=== PATIENT | female | born 1990 | race Caucasian/White ===

== ENCOUNTER 2016-07-06 01:12 | Emergency (ER) | payer OTHER ==
[~2016-07-06] VITALS: Ht 167.6 cm; Wt 135.0 kg
[~2016-07-06 01:12] MED LIST: ALBU8.5H5 INH; HYDR-906 PO; LORA-441 PO
[2016-07-06 01:44] VITALS: Ht 167.6 cm; Wt 135.0 kg
[2016-07-06] MEDS ORDERED: ONDANSETRON (ODT) 4 MG TAB ODT STA (05:27)
[2016-07-06] MEDS ORDERED: ONDA4TAB8 PO (06:07)
[2016-07-06] MEDS ORDERED: LOPE2CAP PO (06:07)
[2016-07-06] MEDS ORDERED: ELEC100080 PO (06:08)
[2016-07-06 06:09] VITALS: BP 118/72; PULSE 96; RESP 16; TEMP 97.9
--- NOTE | 2016-07-06 06:18 | ERD ---
ER Documentation Chief Complaint Date/Time DATE: 07/06/16 TIME: 06:14 Chief Complaint n/v with diarrhea for past 2 days my grandfather has the same symtpoms HPI This is a 26 year old female who presents to the emergency department today complaining of nausea vomiting diarrhea for the past 2 days. Patient states she is having a hard time keeping liquids down. States she has been drinking dk tiffanie and Gatorade. States that she is hungry but she is afraid to eat. States that her grandfather that she wasn't have the same symptoms. Denies any fevers or chills or abdominal pain. ROS All systems reviewed and are negative except as per history of present illness. Medications Home Meds Active Scripts Electrolyte,Oral (Pedialyte) 1,000 Ml Solution, 100 ML PO Q6 Y for DIARRHEA, # 1000 ML Prov:CATHERINE CASANOVA PA-C 07/06/16 Loperamide Hcl* (Imodium*) 2 Mg Capsule, 2 MG PO .AFTER EA LOOSE BM Y for DIARRHEA, #10 TAB Prov:CATHERINE CASANOVA PA-C 07/06/16 Ondansetron Hcl* (Zofran*) 4 Mg Tablet, 4 MG PO Q6H for NAUSEA AND/OR VOMITING, #30 TAB Prov:CATHERINE CASANOVA PA-C 07/06/16 Hydrocodone Bit-Acetaminophen ([place]) 5-325 Mg Tablet, 1 TAB PO DAILY Y for PAIN for 7 Days, #7 TAB 0 Refills Prov:JENI CLINTON PA-C 01/06/16 Albuterol Sulfate* (Albuterol Sulfate* HFA) 8.5 Gm Hfa.aer.ad, 1-2 PUFF INH Q4 Y for SHORTNESS OF BREATH, #1 EA Prov:CHO,ROBINSON 12/15/14 Lorazepam* (Ativan*) 0.5 Mg Tablet, 0.5 MG PO Q8, #10 Prov:CHO,ROBINSON 12/15/14 Allergies Allergies: Coded Allergies: aspirin (Verified Allergy, Unknown, 01/06/16) diphenhydramine (Verified Allergy, Unknown, mouth swelling, 12/15/14) PMhx/Soc Hx Respiratory Disorders: Yes (asthma) Hx Psychiatric Problems: Yes (anxiety depression) Hx Alcohol Use: Yes (occasionally) Hx Substance Use: No Hx Tobacco Use: Yes Smoking Status: Never smoker Physical Exam Vitals Vital Signs Date Time Temp Pulse Resp B/P Pulse Ox O2 Delivery O2 Flow Rate FiO2 07/06/16 06:09 97.9 96 16 118/72 97 Room Air 07/06/16 01:44 97.5 108 18 136/82 95 Physical Exam Const: Obese, no acute distress Head: Atraumatic Eyes: Normal Conjunctiva ENT: Normal External Ears, Nose and Mouth. Neck: Full range of motion..~ No meningismus. Resp: Clear to auscultation bilaterally Cardio: Regular rate and rhythm, no murmurs Abd: Soft, non tender, non distended. Normal bowel sounds. No right lower quadrant pain. No left lower quadrant pain. Skin: No petechiae or rashes Back: No midline or flank tenderness Ext: No cyanosis, or edema Neur: Awake and alert Psych: Normal Mood and Affect Results 24 hrs Current Medications Medications (Trade) Dose Ordered Sig/Juan Miguel Route PRN Reason Start Time Stop Time Status Last Admin Dose Admin Ondansetron HCl (Zofran Odt) 4 mg ONCE STAT ODT 07/06/16 05:27 07/06/16 05:28 DC 07/06/16 06:06 Ibuprofen (Motrin) 800 mg ONCE ONCE PO 07/06/16 06:30 07/06/16 06:31 Procedures/MDM This is a 6 old female who presents the emergency department today complaining of nausea vomiting and diarrhea for the past couple of days. Patient's grandfather also has a same symptoms. Patient had no abdominal pain on physical exam. She is afebrile and otherwise well-appearing. I do not feel the patient requires laboratory work or imaging at this time. Patient's symptoms at this time consistent with nausea vomiting diarrhea possibly viral in nature. I have low suspicion for any acute surgical abdomen. She has no right lower quadrant pain. She has no left lower quadrant pain. Patient given Zofran here in the emergency department. Patient was playing of some back pain and was therefore given Motrin prior to discharge. Patient was asking to leave and stated that she wanted to go home. She was instructed to return for any worsening of symptoms or abdominal pain. She was also instructed to stop smoking. At this time the patient is stable for discharge and outpatient management. Patient should follow up with their PCP in the next 1-2 days. They may return to the emergency department sooner for any persistent or worsening of symptoms. Patient understood and agreed with the plan. Departure Diagnosis: Primary Impression: Nausea vomiting and diarrhea Condition: Fair Patient Instructions: Self-Care for Vomiting and Diarrhea Additional Instructions: Call your primary care doctor TOMORROW for an appointment during the next 1-2 days.See the doctor sooner or return here if your condition worsens before your appointment time. Zofran for nausea or vomiting Imodium for diarrhea Stay well-hydrated CATHERINE CASANOVA PA-C Jul 06, 2016 06:18
[2016-07-06] MEDS ORDERED: IBUPROFEN 800 MG TAB PO ONE (06:30)
== END 2016-07-06 06:17 | disposition home or self-care (01) ==
LOC: EEVIPCON 01:12 → FTE 01:12
DX: R11.2 Nausea with vomiting, unspecified (principal); R19.7 Diarrhea, unspecified; J45.909 Unspecified asthma, uncomplicated
CPT/HCPCS: 99283

== ENCOUNTER 2016-12-31 10:56 | Emergency (ER) | payer OTHER ==
[~2016-12-31] VITALS: Ht 167.6 cm; Wt 151.5 kg
[~2016-12-31 10:56] MED LIST changes: +ELEC100080 PO; +LOPE2CAP PO; +ONDA4TAB8 PO
[2016-12-31 11:01] VITALS: Ht 167.6 cm; Wt 151.5 kg
[2016-12-31] MEDS ORDERED: ACETAMINOPHEN 325 MG TAB PO ONE ×2 (11:30)
--- NOTE | 2016-12-31 12:21 | RADRPT ---
PROCEDURE: Right upper quadrant ultrasound CLINICAL INDICATION: Abdominal pain TECHNIQUE: Multiple real-time images were acquired of the patient's abdomen and right retroperiton eum utilizing a high resolution transducer. COMPARISON: None FINDINGS: The liver is normal in echogenicity and measures 21.1 cm. No focal hepatic masses are seen. The ga llbladder is physiologically distended. There is no evidence of gallstones, gallbladder wall thicke pablo, or pericholecystic fluid. The intra and extrahepatic bile ducts are normal in caliber. The c ommon bile duct measures 4.8 mm. Midline images demonstrate the pancreas head to be normal in echogenicity without obvious inflammato ry change. The body and tail are suboptimally seen Survey views of the right kidney demonstrate no evidence of hydronephrosis or renal calculi. The ri ght kidney measures 11.7 cm. IMPRESSION: 1. No evidence of cholelithiasis or acute cholecystitis. 2. No biliary duct dilatation. 3. Mild hepatomegaly RPTAT: HH .Silvio Mcfarland MD, Date Time Electronically viewed and signed by .Silvio Mcfarland MD, on 12/31/2016 12:21 .W/
[2016-12-31 12:45] LABS: BASOPHILS % 0.3 % (0.0-2.0); EOSINOPHILS # 0.1 10^3/ul (0.0-0.5); EOSINOPHILS % 0.7 % (0.0-7.0); HEMATOCRIT 34.9 % (37.0-47.0); HEMOGLOBIN 11.6 g/dl (12.0-16.0); LYMPHOCYTES # 3.1 10^3/ul (0.8-2.9); LYMPHOCYTES % 26.7 % (15.0-51.0); MEAN CORPUSCULAR HEMOGLOBIN 25.3 pg (29.0-33.0); MEAN CORPUSCULAR HGB CONC 33.2 g/dl (32.0-37.0); MEAN PLATELET VOLUME 9.1 fl (7.4-10.4); MONOCYTE # 0.6 10^3/ul (0.3-0.9); NEUTROPHIL # 7.8 10^3/ul (1.6-7.5); PLATELET COUNT 331 10^3/UL (140-415); RED BLOOD COUNT 4.59 10^6/ul (4.20-5.40); RED CELL DISTRIBUTION WIDTH 14.5 % (11.5-14.5); WHITE BLOOD COUNT 11.6 10^3/ul (4.8-10.8)
[2016-12-31 12:49] LABS: ADD SCAN DIFF NO
[2016-12-31 12:53] LABS: ADD UMIC NO; UR ASCORBIC ACID NEGATIVE (NEGATIVE); UR BILIRUBIN (Dip) NEGATIVE (NEGATIVE); UR BLOOD (Dip) NEGATIVE (NEGATIVE); UR CLARITY SLIGHTLY CLOUDY (CLEAR); UR COLOR YELLOW (YELLOW); UR GLUCOSE (Dip) NEGATIVE (NEGATIVE); UR KETONES (Dip) NEGATIVE (NEGATIVE); UR LEUKOCYTE ESTERASE (Dip) NEGATIVE Leu/ul (NEGATIVE); UR NITRITE (Dip) NEGATIVE (NEGATIVE); UR RBC 0 /HPF (0-5); UR SPECIFIC GRAVITY (Dip) 1.016 (1.003-1.030); UR SQUAMOUS EPITHELIAL CELL FEW /HPF (FEW); UR TOTAL PROTEIN (Dip) NEGATIVE (NEGATIVE); UR UROBILINOGEN (Dip) NEGATIVE (NEGATIVE)
--- NOTE | 2016-12-31 12:59 | RADRPT ---
PROCEDURE: US OB. CLINICAL INDICATION: Pelvic pain. TECHNIQUE: Multiple sonographic images of the pelvis were obtained. Transabdominal imaging only w as performed. COMPARISON: None. FINDINGS: The cervix is closed with a length of 4.0 cm. Cardiac activity is present with 151 beats per minute. Measurements were made in order to determine age. The results are as follows: BPD = 15 weeks 0 days HC = 15 weeks 2 days AC = 17 weeks 3 days FL = 15 weeks 3 days The placenta is anterior, with no evidence of previa. IMPRESSION: Single, live intrauterine with estimated age of 15 weeks, 6 days on the basis of thi s examination. No acute or significant abnormality. RPTAT: EE .Cedric Gonzalez MD, MD Date Time Electronically viewed and signed by .Cedric Gonzalez MD, on 12/31/2016 13:04 .C/
[2016-12-31 13:02] LABS: ALBUMIN 4.4 g/dl (3.3-4.9); ALBUMIN/GLOBULIN RATIO 1.25; CALCIUM 9.8 mg/dl (8.4-10.2); CREATININE 0.46 mg/dl (0.44-1.00); POTASSIUM 3.7 mmol/L (3.5-5.1); TOTAL PROTEIN 7.9 g/dl (6.1-8.1)
[2016-12-31] MEDS ORDERED: ACET500C5 PO (13:29)
--- NOTE | 2016-12-31 13:34 | ERD ---
ER Documentation Chief Complaint Date/Time DATE: 12/31/16 TIME: 13:31 Chief Complaint ABDOMINAL CRAMPS SINCE YESTERDAY, 15 WEEKS PREG NO VAG BLEED HPI This 26-year-old female presents with 1 day history of intermittent abdominal pain. She is approximately 15 weeks by dates. She is unable to specifically localize pain but describes as being in the right upper quadrant, left upper quadrant and occasionally in the mid abdomen. She has a right lower quadrant abdominal pain currently. She denies any fevers. She has nausea from the beginning of but no vomiting. Denies diarrhea, urinary complaints. She does receive care. She denies any vaginal bleeding or vaginal discharge ROS All systems reviewed and are negative except as per history of present illness. Medications Home Meds Active Scripts Acetaminophen* (Tylophen*) 500 Mg Capsule, 1 CAP PO Q6H Y for PAIN AND OR ELEVATED TEMP, #20 CAP Prov:ROYCE THOMAS MD 12/31/16 Electrolyte,Oral (Pedialyte) 1,000 Ml Solution, 100 ML PO Q6 Y for DIARRHEA, # 1000 ML Prov:CATHERINE CASANOVA PA-C 07/06/16 Loperamide Hcl* (Imodium*) 2 Mg Capsule, 2 MG PO .AFTER EA LOOSE BM Y for DIARRHEA, #10 TAB Prov:CATHERINE CASANOVA PA-C 07/06/16 Ondansetron Hcl* (Zofran*) 4 Mg Tablet, 4 MG PO Q6H for NAUSEA AND/OR VOMITING, #30 TAB Prov:CATHERINE CASANOVA PA-C 07/06/16 Hydrocodone Bit-Acetaminophen ([place]) 5-325 Mg Tablet, 1 TAB PO DAILY Y for PAIN for 7 Days, #7 TAB 0 Refills Prov:JENI CLINTON PA-C 01/06/16 Albuterol Sulfate* (Albuterol Sulfate* HFA) 8.5 Gm Hfa.aer.ad, 1-2 PUFF INH Q4 Y for SHORTNESS OF BREATH, #1 EA Prov:CHO,ROBINSON 12/15/14 Lorazepam* (Ativan*) 0.5 Mg Tablet, 0.5 MG PO Q8, #10 Prov:CHO,ROBINSON 12/15/14 Allergies Allergies: Coded Allergies: aspirin (Verified Allergy, Unknown, 12/31/16) diphenhydramine (Verified Allergy, Unknown, mouth swelling, 12/31/16) PMhx/Soc Medical and Surgical Hx: pt denies Surgical Hx Hx Respiratory Disorders: Yes (asthma) Hx Psychiatric Problems: Yes (anxiety depression) Hx Alcohol Use: Yes (occasionally) Hx Substance Use: No Hx Tobacco Use: Yes Smoking Status: Current every day smoker Physical Exam Vitals Vital Signs Date Time Temp Pulse Resp B/P Pulse Ox O2 Delivery O2 Flow Rate FiO2 12/31/16 11:01 97.3 102 18 136/84 96 Physical Exam Const: [] Alert, morbidly obese Head: Atraumatic Eyes: Normal Conjunctiva ENT: Normal External Ears, Nose and Mouth. Neck: Full range of motion..~ No meningismus. Resp: Clear to auscultation bilaterally Cardio: Regular rate and rhythm, no murmurs Abd: Soft, minimal tenderness in the right left upper quadrant. No rebound. No tenderness at McBurney's point., non distended. Normal bowel sounds Skin: No petechiae or rashes Back: No midline or flank tenderness Ext: No cyanosis, or edema Neur: Awake and alert Psych: Normal Mood and Affect Result Diagram: 12/31/16 1223 12/31/16 1223 Results 24 hrs Laboratory Tests Test 12/31/16 12:23 White Blood Count 11.610^3/ul Red Blood Count 4.5910^6/ul Hemoglobin 11.6g/dl Hematocrit 34.9% Mean Corpuscular Volume 76.0fl Mean Corpuscular Hemoglobin 25.3pg Mean Corpuscular Hemoglobin Concent 33.2g/dl Red Cell Distribution Width 14.5% Platelet Count 79993^3/UL Mean Platelet Volume 9.1fl Neutrophils % 67.0% Lymphocytes % 26.7% Monocytes % 5.0% Eosinophils % 0.7% Basophils % 0.3% Nucleated Red Blood Cells % 0.0/100WBC Neutrophils # 7.810^3/ul Lymphocytes # 3.110^3/ul Monocytes # 0.610^3/ul Eosinophils # 0.110^3/ul Basophils # 0.010^3/ul Nucleated Red Blood Cells # 0.010^3/ul Urine Color YELLOW Urine Clarity SLIGHTLY CLOUDY Urine pH 7.0 Urine Specific Alpha 1.016 Urine Ketones NEGATIVEmg/dL Urine Nitrite NEGATIVEmg/dL Urine Bilirubin NEGATIVEmg/dL Urine Urobilinogen NEGATIVEmg/dL Urine Leukocyte Esterase NEGATIVELeu/ul Urine Microscopic RBC 0/HPF Urine Microscopic WBC 2/HPF Urine Squamous Epithelial Cells FEW/HPF Urine Hemoglobin NEGATIVEmg/dL Urine Glucose NEGATIVEmg/dL Urine Total Protein NEGATIVEmg/dl Sodium Level 139mmol/L Potassium Level 3.7mmol/L Chloride Level 101mmol/L Carbon Dioxide Level 21mmol/L Anion Gap 21 Blood Urea Nitrogen 6mg/dl Creatinine 0.46mg/dl Glucose Level 115mg/dl Calcium Level 9.8mg/dl Total Bilirubin 0.0mg/dl Direct Bilirubin 0.00mg/dl Indirect Bilirubin 0.0mg/dl Aspartate Amino Transf (AST/SGOT) 19IU/L Alanine Aminotransferase (ALT/SGPT) 32IU/L Alkaline Phosphatase 69IU/L Total Protein 7.9g/dl Albumin 4.4g/dl Globulin 3.50g/dl Albumin/Globulin Ratio 1.25 Lipase 76U/L Current Medications Medications (Trade) Dose Ordered Sig/Juan Miguel Route PRN Reason Start Time Stop Time Status Last Admin Dose Admin Acetaminophen (Tylenol Tab) 650 mg ONCE ONCE PO 12/31/16 11:30 12/31/16 11:31 DC 12/31/16 12:12 Acetaminophen (Tylenol Tab) 650 mg ONCE ONCE PO 12/31/16 11:30 12/31/16 12:12 DC Procedures/MDM Urine is negative for leukocytes, nitrites, glucose. Pelvic ultrasound shows normal-appearing 15 week intrauterine without acute findings. Right upper quadrant ultrasound shows fatty liver without gallbladder abnormalities, stones, and no signs of obstruction or cholecystitis CBC shows mild leukocytosis of 11 otherwise no acute findings. CMP and lipase are normal. Patient was given Tylenol for pain. Patient presents in uncertain etiology of intermittent mild abdominal pain of mid . There is no current signs or symptoms of ectopic , appendicitis, acute abdomen. No evidence to suggest hepatobiliary disease, pyelonephritis. She will treated with Tylenol and further observation at home. The patient was stable with no new complaints during the ER course. Clinically, there is no current evidence to suggest meningitis, sepsis, acute abdomen, pneumonia, acute coronary syndrome, pulmonary embolism, or any other emergent condition appearing to require further evaluation or hospitalization. The patient should certainly return for any new or worsening symptoms per the aftercare instructions. They should otherwise follow-up with her primary care doctor for reevaluation this week. Departure Diagnosis: Primary Impression: Abdominal pain Abdominal location: unspecified location Qualified Code: R10.9 - Abdominal pain, unspecified location Condition: Stable Patient Instructions: Abdominal Pain, Early Additional Instructions: All examinations normal today. No gallstones seen. Recheck for fevers, vomiting, new worsening symptoms or with OB. ROYCE THOMAS MD Dec 31, 2016 13:34
[2017-01-04] MEDS ORDERED: ONDANSETRON 4 MG INJ IV STA (11:28)
[2017-01-04] MEDS ORDERED: SOD CHLORIDE 0.9% 1,000 ML IV STA (11:28)
== END 2016-12-31 13:43 | disposition home or self-care (01) ==
LOC: FTE 10:56
DX: O26.892 Other specified pregnancy related conditions, second trimester (principal); R10.11 Right upper quadrant pain; R10.12 Left upper quadrant pain; J45.909 Unspecified asthma, uncomplicated; F17.210 Nicotine dependence, cigarettes, uncomplicated; O99.512 Diseases of the respiratory system complicating pregnancy, second trimester; O99.332 Smoking (tobacco) complicating pregnancy, second trimester; Z3A.15 15 weeks gestation of pregnancy
CPT/HCPCS: 36415; 76705; 76805; 80053; 81001; 81003; 83690; 85025

== ENCOUNTER 2017-01-04 10:59 | Emergency (ER) | payer OTHER ==
[~2017-01-04] VITALS: Ht 157.5 cm; Wt 150.5 kg
[~2017-01-04 10:59] MED LIST changes: +ACET500C5 PO
[2017-01-04 11:09] VITALS: Ht 157.5 cm; Wt 150.5 kg
[2017-01-04] MEDS ORDERED: SOD CHLORIDE 0.9% 1,000 ML IV STA (11:59)
[2017-01-04] MEDS ORDERED: ONDANSETRON 4 MG INJ IV STA (11:59)
[2017-01-04 13:06] LABS: ADD SCAN DIFF NO
[2017-01-04 13:10] LABS: BASOPHILS % 0.2 % (0.0-2.0); EOSINOPHILS # 0.1 10^3/ul (0.0-0.5); EOSINOPHILS % 1.1 % (0.0-7.0); HEMATOCRIT 33.2 % (37.0-47.0); HEMOGLOBIN 10.5 g/dl (12.0-16.0); LYMPHOCYTES # 3.3 10^3/ul (0.8-2.9); LYMPHOCYTES % 26.2 % (15.0-51.0); MEAN CORPUSCULAR HEMOGLOBIN 23.9 pg (29.0-33.0); MEAN CORPUSCULAR HGB CONC 31.6 g/dl (32.0-37.0); MEAN CORPUSCULAR VOLUME 75.5 fl (82.0-101.0); MEAN PLATELET VOLUME 9.2 fl (7.4-10.4); MONOCYTE # 0.8 10^3/ul (0.3-0.9); MONOCYTES % 6.3 % (0.0-11.0); NEUTROPHIL # 8.4 10^3/ul (1.6-7.5); NEUTROPHILS % 65.7 % (39.0-77.0); PLATELET COUNT 319 10^3/UL (140-415); RED CELL DISTRIBUTION WIDTH 14.6 % (11.5-14.5); WHITE BLOOD COUNT 12.8 10^3/ul (4.8-10.8)
[2017-01-04 13:28] LABS: ADD UMIC YES; ALBUMIN/GLOBULIN RATIO 1.25; CALCIUM 9.4 mg/dl (8.4-10.2); CREATININE 0.41 mg/dl (0.44-1.00); POTASSIUM 3.6 mmol/L (3.5-5.1); TOTAL PROTEIN 7.2 g/dl (6.1-8.1); UR ASCORBIC ACID NEGATIVE (NEGATIVE); UR BILIRUBIN (Dip) NEGATIVE (NEGATIVE); UR BLOOD (Dip) NEGATIVE (NEGATIVE); UR CLARITY CLOUDY (CLEAR); UR COLOR YELLOW (YELLOW); UR GLUCOSE (Dip) NEGATIVE (NEGATIVE); UR KETONES (Dip) 1+ mg/dL (NEGATIVE); UR LEUKOCYTE ESTERASE (Dip) 2+ Leu/ul (NEGATIVE); UR NITRITE (Dip) NEGATIVE (NEGATIVE); UR RBC 1 /HPF (0-5); UR SQUAMOUS EPITHELIAL CELL MANY /HPF (FEW); UR TOTAL PROTEIN (Dip) NEGATIVE (NEGATIVE); UR UROBILINOGEN (Dip) NEGATIVE (NEGATIVE)
[2017-01-04] MEDS ORDERED: METO10TA92 PO (13:57)
--- NOTE | 2017-01-04 14:09 | ERD ---
ER Documentation Chief Complaint Date/Time DATE: 01/04/17 TIME: 14:07 Chief Complaint 16 week with leg swellling, HPI This 26-year-old female presents with multiple complaints. She seen here this weekend for right upper quadrant pain. She is approximately 16 week by dates. At that time she had a normal right upper quadrant ultrasound and normal 15 week . She denies any fevers, vomiting, shortness of the chest pain. She has vaginal bleeding. She has multiple complaints of nausea with intermittent vomiting number somebody. Sensation of swelling in her legs and migratory generalized abdominal pain. She denies any headache, urinary complaints. ROS All systems reviewed and are negative except as per history of present illness. Medications Home Meds Active Scripts Metoclopramide* (Reglan*) 10 Mg Tablet, 10 MG PO TID, #20 TAB Prov:ROYCE THOMAS MD 01/04/17 Acetaminophen* (Tylophen*) 500 Mg Capsule, 1 CAP PO Q6H Y for PAIN AND OR ELEVATED TEMP, #20 CAP Prov:ROYCE THOMAS MD 12/31/16 Electrolyte,Oral (Pedialyte) 1,000 Ml Solution, 100 ML PO Q6 Y for DIARRHEA, # 1000 ML Prov:CATHERINE CASANOVA PA-C 07/06/16 Loperamide Hcl* (Imodium*) 2 Mg Capsule, 2 MG PO .AFTER EA LOOSE BM Y for DIARRHEA, #10 TAB Prov:CATHERINE CASANOVA PA-C 07/06/16 Ondansetron Hcl* (Zofran*) 4 Mg Tablet, 4 MG PO Q6H for NAUSEA AND/OR VOMITING, #30 TAB Prov:CATHERINE CASANOVA PA-C 07/06/16 Hydrocodone Bit-Acetaminophen ([place]) 5-325 Mg Tablet, 1 TAB PO DAILY Y for PAIN for 7 Days, #7 TAB 0 Refills Prov:JENI CLINTON PA-C 01/06/16 Albuterol Sulfate* (Albuterol Sulfate* HFA) 8.5 Gm Hfa.aer.ad, 1-2 PUFF INH Q4 Y for SHORTNESS OF BREATH, #1 EA Prov:CHO,ROBINSON 12/15/14 Lorazepam* (Ativan*) 0.5 Mg Tablet, 0.5 MG PO Q8, #10 Prov:CHO,ROBINSON 12/15/14 Allergies Allergies: Coded Allergies: aspirin (Verified Allergy, Unknown, 01/04/17) diphenhydramine (Verified Allergy, Unknown, mouth swelling, 01/04/17) PMhx/Soc Medical and Surgical Hx: pt denies Surgical Hx Hx Respiratory Disorders: Yes (Asthma) Hx Psychiatric Problems: Yes (anxiety depression) Hx Alcohol Use: Yes (QUIT) Hx Substance Use: No Hx Tobacco Use: Yes (QUIT) Smoking Status: Former smoker Physical Exam Vitals Vital Signs Date Time Temp Pulse Resp B/P Pulse Ox O2 Delivery O2 Flow Rate FiO2 01/04/17 11:09 98.1 95 18 126/63 97 Physical Exam Const: [], Morbidly obese, [id number] per Head: Atraumatic Eyes: Normal Conjunctiva ENT: Normal External Ears, Nose and Mouth. Neck: Full range of motion..~ No meningismus. Resp: Clear to auscultation bilaterally Cardio: Regular rate and rhythm, no murmurs Abd: Soft, non tender, non distended. Normal bowel sounds Skin: No petechiae or rashes Back: No midline or flank tenderness Ext: No cyanosis, or edema Neur: Awake and alert Psych: Normal Mood and Affect Result Diagram: 01/04/17 1245 01/04/17 1245 Results 24 hrs Laboratory Tests Test 01/04/17 12:45 White Blood Count 12.810^3/ul Red Blood Count 4.4010^6/ul Hemoglobin 10.5g/dl Hematocrit 33.2% Mean Corpuscular Volume 75.5fl Mean Corpuscular Hemoglobin 23.9pg Mean Corpuscular Hemoglobin Concent 31.6g/dl Red Cell Distribution Width 14.6% Platelet Count 17811^3/UL Mean Platelet Volume 9.2fl Neutrophils % 65.7% Lymphocytes % 26.2% Monocytes % 6.3% Eosinophils % 1.1% Basophils % 0.2% Nucleated Red Blood Cells % 0.0/100WBC Neutrophils # 8.410^3/ul Lymphocytes # 3.310^3/ul Monocytes # 0.810^3/ul Eosinophils # 0.110^3/ul Basophils # 0.010^3/ul Nucleated Red Blood Cells # 0.010^3/ul Urine Color YELLOW Urine Clarity CLOUDY Urine pH 5.0 Urine Specific [place] 1.020 Urine Ketones 1+mg/dL Urine Nitrite NEGATIVEmg/dL Urine Bilirubin NEGATIVEmg/dL Urine Urobilinogen NEGATIVEmg/dL Urine Leukocyte Esterase 2+Todd/ul Urine Microscopic RBC 1/HPF Urine Microscopic WBC 5/HPF Urine Squamous Epithelial Cells MANY/HPF Urine Hemoglobin NEGATIVEmg/dL Urine Glucose NEGATIVEmg/dL Urine Total Protein NEGATIVEmg/dl Sodium Level 138mmol/L Potassium Level 3.6mmol/L Chloride Level 103mmol/L Carbon Dioxide Level 23mmol/L Anion Gap 16 Blood Urea Nitrogen 5mg/dl Creatinine 0.41mg/dl Glucose Level 78mg/dl Calcium Level 9.4mg/dl Total Bilirubin 0.0mg/dl Direct Bilirubin 0.00mg/dl Indirect Bilirubin 0.0mg/dl Aspartate Amino Transf (AST/SGOT) 18IU/L Alanine Aminotransferase (ALT/SGPT) 29IU/L Alkaline Phosphatase 60IU/L Total Protein 7.2g/dl Albumin 4.0g/dl Globulin 3.20g/dl Albumin/Globulin Ratio 1.25 Lipase 39U/L Current Medications Medications (Trade) Dose Ordered Sig/Juan Miguel Route PRN Reason Start Time Stop Time Status Last Admin Dose Admin Sodium Chloride (NS) 1,000 ml @ 1,000 mls/hr Q1H STAT IV 01/04/17 11:59 01/04/17 12:58 DC 01/04/17 12:59 Ondansetron HCl (Zofran Inj) 4 mg ONCE STAT IV 01/04/17 11:59 01/04/17 12:00 DC 01/04/17 12:58 Procedures/MDM CBC shows a white blood count 12.8. Hemoglobin is 10.8. Urine is negative for findings of infection or glucose. Patient was given 1 L normal saline IV and Zofran 4 mg IV. Patient was eating after observation treatment. Patient presents with multiple somatic complaints of early . There is no findings to his suggest acute abdomen, respiratory distress, DVT given normal ultrasound earlier this week this was deferred given absence of bleeding or significant pain. Patient will be treated with Reglan and OB follow -up . The patient was stable with no new complaints during the ER course. Clinically, there is no current evidence to suggest meningitis, sepsis, acute abdomen, pneumonia, acute coronary syndrome, pulmonary embolism, or any other emergent condition appearing to require further evaluation or hospitalization. The patient should certainly return for any new or worsening symptoms per the aftercare instructions. They should otherwise follow-up with her primary care doctor for reevaluation this week. Departure Diagnosis: Primary Impression: Abdominal pain Abdominal location: upper abdomen, unspecified Qualified Code: R10.10 - Pain of upper abdomen Condition: Stable Patient Instructions: Abdominal Pain, Early Additional Instructions: Examinations normal today or no change from previous. Recommend ROYCE THOMAS MD Jan 04, 2017 14:09
== END 2017-01-04 15:00 | disposition home or self-care (01) ==
LOC: FTE 10:59
DX: O26.892 Other specified pregnancy related conditions, second trimester (principal); R10.11 Right upper quadrant pain; J45.909 Unspecified asthma, uncomplicated; O99.512 Diseases of the respiratory system complicating pregnancy, second trimester; Z3A.16 16 weeks gestation of pregnancy; Z87.891 Personal history of nicotine dependence
CPT/HCPCS: 36415; 80053; 81001; 83690; 85025; 96374; 99284; J2405; J7030

== ENCOUNTER 2017-01-09 22:22 | Emergency (ER) | payer OTHER ==
[~2017-01-09] VITALS: Ht 167.6 cm; Wt 152.0 kg
[~2017-01-09 22:22] MED LIST changes: +METO10TA92 PO
[2017-01-09 22:47] VITALS: Ht 167.6 cm; Wt 152.0 kg
--- NOTE | 2017-01-09 23:32 | ERD ---
ER Documentation Chief Complaint Date/Time DATE: 01/09/17 TIME: 23:30 Chief Complaint pt reports anxiety/sob after argument. s/s resolved 16 wks preg HPI 26-year-old female presented emergency department for anxiety and shortness of breath after an argument with her boyfriend. Also reports that she vomited once developed epigastric pain that radiates to bilateral lower abdominal area after the argument. Patient is 16 weeks . A0. LMP: September 08, 2016. [place]: June 27, 2017. Denies headache, loss of consciousness, dizziness, blurry vision, changes in vision, photophobia, facial pain, ear pain, throat pain, difficulty swallowing, neck pain, shoulder pain, chest pain, cough, hemoptysis, loss of appetite, nausea, vomiting, hematochezia, diarrhea, constipation, urinary symptoms, bladder and bowel incontinences, extremity weakness, extremity tenderness, numbness or tingling sensation, difficulty walking, recent travel, recent exposure to illness, recent antibiotic use in the last 3 months, fever, chills. Allergies to aspirin and Benadryl. No past medical history. No surgical history. Medication: Denies taking any prescription medication. Not working at this time. Denies smoking, use of alcohol, use of illegal drugs. ROS All systems reviewed and are negative except as per history of present illness. Medications Home Meds Active Scripts Multivit/Min/Fol Ac/Iron/Pren* ( S*) 1 Tab Tab, 1 TAB PO DAILY, #30 TAB Prov:KIERSTEN MCNAMARA 01/10/17 Ondansetron (Ondansetron Odt) 4 Mg Tab.rapdis, 4 MG PO Q8, #10 TAB Prov:KIERSTEN MCNAMARA 01/10/17 Acetaminophen* (Tylophen*) 500 Mg Capsule, 1 CAP PO Q6H Y for PAIN AND OR ELEVATED TEMP, #20 CAP Prov:KIERSTEN MCNAMARA 01/10/17 Nitrofurantoin Monohyd Macrocr* (Macrobid*) 100 Mg Capsr, 100 MG PO BID for 7 Days, CAP Prov:KIERSTEN MCNAMARA 01/10/17 Metoclopramide* (Reglan*) 10 Mg Tablet, 10 MG PO TID, #20 TAB Prov:ROYCE THOMAS MD 01/04/17 Acetaminophen* (Tylophen*) 500 Mg Capsule, 1 CAP PO Q6H Y for PAIN AND OR ELEVATED TEMP, #20 CAP Prov:ROYCE THOMAS MD 12/31/16 Electrolyte,Oral (Pedialyte) 1,000 Ml Solution, 100 ML PO Q6 Y for DIARRHEA, # 1000 ML Prov:CATHERINE CASANOVA PA-C 07/06/16 Loperamide Hcl* (Imodium*) 2 Mg Capsule, 2 MG PO .AFTER EA LOOSE BM Y for DIARRHEA, #10 TAB Prov:CATHERINE CASANOVA PA-C 07/06/16 Ondansetron Hcl* (Zofran*) 4 Mg Tablet, 4 MG PO Q6H for NAUSEA AND/OR VOMITING, #30 TAB Prov:CATHERINE CASANOVA PA-C 07/06/16 Hydrocodone Bit-Acetaminophen (Pep) 5-325 Mg Tablet, 1 TAB PO DAILY Y for PAIN for 7 Days, #7 TAB 0 Refills Prov:JENI CLINTON PA-C 01/06/16 Albuterol Sulfate* (Albuterol Sulfate* HFA) 8.5 Gm Hfa.aer.ad, 1-2 PUFF INH Q4 Y for SHORTNESS OF BREATH, #1 EA Prov:CHO,ROBINSON 12/15/14 Lorazepam* (Ativan*) 0.5 Mg Tablet, 0.5 MG PO Q8, #10 Prov:CHO,ROBINSON 12/15/14 Allergies Allergies: Coded Allergies: aspirin (Verified Allergy, Unknown, 01/04/17) diphenhydramine (Verified Allergy, Unknown, mouth swelling, 01/04/17) PMhx/Soc Hx Respiratory Disorders: Yes (Asthma) Hx Psychiatric Problems: Yes (anxiety, depression) Hx Alcohol Use: Yes (QUIT) Hx Substance Use: No Hx Tobacco Use: Yes (QUIT) Smoking Status: Former smoker Physical Exam Vitals Vital Signs Date Time Temp Pulse Resp B/P Pulse Ox O2 Delivery O2 Flow Rate FiO2 01/09/17 22:47 98.3 90 18 137/79 100 Physical Exam CONSTITUTIONAL: Well-appearing; well-nourished; in no apparent distress. HEAD: Normocephalic; atraumatic. EYES: Conjunctiva clear, sclera non-icteric, EOM intact. PERRL Ears: Hearing intact. EACs clear, TMs non-bulging, non-inflamed, translucent & mobile, ossicles normal appearance, No obstructions, no erythema, no discharges Nose: No obstructions. No polyps. No external lesions. Mucosa non-inflamed. No external lesions, septum and turbinates normal. No rhinorrhea. No discharges. Frontal sinus is non-tender to palpation. Maxillary sinus is non-tender to palpation. MOUTH: Moist mucous membranes, no lesion, no obstructions, no vesicles, no thrush, patent airway Throat: Uvula in midline. Right tonsil is +1 with no erythema, no exudate. Left tonsil is +1 with no erythema, no exudate. Tolerating secretions well. Good gag reflex. Patent airway. Neck: Supple, without lesions, bruits, or adenopathy. No mass. Thyroid non- enlarged and non-tender to palpation. CHEST: Symmetrical chest. Respirations even and not labored. No retractions noted. CARDIOVASCULAR: Normal S1, S2. RRR. No murmurs, gallops. RESPIRATORY: Normal chest excursion with respiration; breath sounds clear and equal bilaterally; no wheezes, rhonchi, or rales. Breathing even and unlabored. Speaking in clear, full, and complete sentences w/ ease. ABDOMEN: Normal bowel sounds normal. Soft, round, non-distended, non-guarding, no tenderness, no rebound, no organomegaly, no masses, no pulsating abdominal mass. No hernia. No peritoneal signs. : No CVA tenderness. BACK: Symmetrical shoulder. Spine is midline without deformity, tenderness. No evidence of trauma or deformity. PELVIS: Stable pelvis. No evidence of trauma or deformity. MUSCULOSKELETAL: Normal gait and station. No misalignment, asymmetry, crepitation, defects, tenderness, masses, effusions, decreased range of motion, instability, atrophy or abnormal strength or tone in the head, neck, spine, ribs , pelvis or extremities. No calf tenderness. NEUROVASCULAR: Distal pulses are present. Pedal pulse are present, equal, and normal. Capillary refills are < 2 seconds. NEUROLOGIC: Alert and oriented x4. Speaks full and clear sentences. Cranial Nerves II-XII normal. Sensation to pain, touch, and proprioception normal. Grossly unremarkable. No neurologic deficits. Romberg test is negative. PSYCHOLOGICAL: The patients mood and manner are appropriate. No hallucinations , delusions. Not SI. Not HI. Has the capacity to decide for self SKIN: Normal for age and ethnicity; warm; dry; good turgor; no apparent lesions or exudates. No rashes, hives, discoloration. Intact. Result Diagram: 01/09/17 2345 01/09/17 2345 Results 24 hrs Laboratory Tests Test 01/09/17 23:45 White Blood Count 12.810^3/ul Red Blood Count 4.5410^6/ul Hemoglobin 10.8g/dl Hematocrit 34.1% Mean Corpuscular Volume 75.1fl Mean Corpuscular Hemoglobin 23.8pg Mean Corpuscular Hemoglobin Concent 31.7g/dl Red Cell Distribution Width 14.6% Platelet Count 56048^3/UL Mean Platelet Volume 8.9fl Neutrophils % 63.3% Lymphocytes % 28.1% Monocytes % 7.0% Eosinophils % 1.0% Basophils % 0.2% Nucleated Red Blood Cells % 0.0/100WBC Neutrophils # 8.110^3/ul Lymphocytes # 3.610^3/ul Monocytes # 0.910^3/ul Eosinophils # 0.110^3/ul Basophils # 0.010^3/ul Nucleated Red Blood Cells # 0.010^3/ul Urine Color YELLOW Urine Clarity CLOUDY Urine pH 5.0 Urine Specific [place] 1.021 Urine Ketones NEGATIVEmg/dL Urine Nitrite NEGATIVEmg/dL Urine Bilirubin NEGATIVEmg/dL Urine Urobilinogen NEGATIVEmg/dL Urine Leukocyte Esterase 3+Todd/ul Urine Microscopic RBC 2/HPF Urine Microscopic WBC 43/HPF Urine Squamous Epithelial Cells MODERATE/HPF Urine Bacteria FEW/HPF Urine Mucus FEW/HPF Urine Hemoglobin NEGATIVEmg/dL Urine Glucose NEGATIVEmg/dL Urine Total Protein NEGATIVEmg/dl Sodium Level 130mmol/L Potassium Level 3.3mmol/L Chloride Level 101mmol/L Carbon Dioxide Level 24mmol/L Anion Gap 8 Blood Urea Nitrogen 6mg/dl Creatinine 0.44mg/dl Glucose Level 101mg/dl Calcium Level 9.9mg/dl Total Bilirubin 0.0mg/dl Direct Bilirubin 0.00mg/dl Indirect Bilirubin 0.0mg/dl Aspartate Amino Transf (AST/SGOT) 18IU/L Alanine Aminotransferase (ALT/SGPT) 24IU/L Alkaline Phosphatase 63IU/L Total Protein 7.4g/dl Albumin 4.2g/dl Globulin 3.20g/dl Albumin/Globulin Ratio 1.31 Amylase Level 40U/L Lipase 85U/L Beta HCG, Quantitative 83857.0mIU/ml Procedures/MDM Examination: Please see physical examination. Disease process, medical treatment was explained to the patient and family member. They verbalized understanding and agreed with the diagnostic tests, medical treatment, and follow-up care. Radiology: OB ultrasound Impression: Single viable intrauterine gestation of approximately 16 weeks and 3 days. Estimated date of delivery June 23, 2017. Urinalysis: UTI. Re-evaluation: Denies headache, dizziness, blurry vision, neck pain, shoulder pain, chest pain, back pain, abdominal pain, nausea, vomiting. No episode of emesis in the emergency department. Alert and oriented 4. Speaks full and clear sentences. Respirations even and unlabored. Lung sounds clear to auscultation. Active bowel sounds. There is no right upper/right lower/ epigastric/left upper/left lower abdominal tenderness and light and deep palpation. Negative on Rov[place] sign. Negative [place] sign. No peritoneal signs. Ambulatory with steady gait. No neurovascular deficits. No neurological deficits. Not suicidal. Not homicidal. Has the capacity to decide for herself. Has good support system at home. Stated that she feels much better this time. Consultation: None. Differential diagnosis: Shortness of breath versus anxiety versus ectopic versus intrauterine versus urinary tract infection Medical decision makin-year-old female presented emergency department for anxiety and shortness of breath after an argument with her boyfriend. Also reports that she vomited once developed epigastric pain that radiates to bilateral lower abdominal area after the argument. Patient is 16 weeks . Patient's complaint, patient's history about her complaint, my physical findings, diagnostic test results, my reevaluation are consistent with final diagnosis of urinary tract infection, intrauterine . Medications prescribed are the following: Macrobid. Tylenol. vitamins. Patient and family member are made aware of the side effects and adverse reactions of the medications prescribed. Instructed on when to seek emergent and medical attention in case allergic/anaphylactic reactions or severe side effects and or adverse reactions to medications. Patient and family member verbalized understanding. Patient instructed Instructed to follow-up with his PCP in 24-48 hours. Follow-up with OB in the next 24-48 hours. Patient stated that she will make sure to see her OB in the next 24 hours. Instructed to Call 911 for chest pain, shortness of breath. Advised to come back here in ED as soon as possible for severity of symptoms which includes but not limited to: any new symptoms; shortness of breath/difficulty of breathing; cardiovascular changes; severe gastrointestinal symptoms; signs and symptoms of bleeding and or infection; signs of compartment syndrome/neurovascular changes; neurological changes/deficits. Patient and family member verbalized understanding. Upon discharge, patient is alert and oriented x 4, speaks full and clear sentences, denies pain, has no neurological deficits, has no neurovascular deficits, difficulty of breathing. Breathing even and unlabored. Lung sounds are clear to auscultation. Not in distress. Appears comfortable. Ambulatory with steady gait. Appears satisfied with care provided here in ED. Departure Diagnosis: Primary Impression: Anxiety Additional Impressions: Normal IUP (intrauterine ) on ultrasound UTI (urinary tract infection) during Condition: Stable Additional Instructions: Instructed to follow-up with his PCP in 24-48 hours. Follow-up with OB in the next 24-48 hours. Patient stated that she will make sure to see her OB in the next 24 hours. Instructed to Call 911 for chest pain, shortness of breath. Advised to come back here in ED as soon as possible for severity of symptoms which includes but not limited to: any new symptoms; shortness of breath/difficulty of breathing; cardiovascular changes; severe gastrointestinal symptoms; signs and symptoms of bleeding and or infection; signs of compartment syndrome/neurovascular changes; neurological changes/deficits. Patient and family member verbalized understanding. KIERSTEN MCNAMARA Jan 09, 2017 23:32
[2017-01-09 23:55] LABS: ADD SCAN DIFF NO
[2017-01-09 23:58] LABS: BASOPHILS % 0.2 % (0.0-2.0); EOSINOPHILS # 0.1 10^3/ul (0.0-0.5); HEMATOCRIT 34.1 % (37.0-47.0); HEMOGLOBIN 10.8 g/dl (12.0-16.0); LYMPHOCYTES # 3.6 10^3/ul (0.8-2.9); LYMPHOCYTES % 28.1 % (15.0-51.0); MEAN CORPUSCULAR HEMOGLOBIN 23.8 pg (29.0-33.0); MEAN CORPUSCULAR HGB CONC 31.7 g/dl (32.0-37.0); MEAN CORPUSCULAR VOLUME 75.1 fl (82.0-101.0); MEAN PLATELET VOLUME 8.9 fl (7.4-10.4); MONOCYTE # 0.9 10^3/ul (0.3-0.9); NEUTROPHIL # 8.1 10^3/ul (1.6-7.5); NEUTROPHILS % 63.3 % (39.0-77.0); PLATELET COUNT 334 10^3/UL (140-415); RED BLOOD COUNT 4.54 10^6/ul (4.20-5.40); RED CELL DISTRIBUTION WIDTH 14.6 % (11.5-14.5); WHITE BLOOD COUNT 12.8 10^3/ul (4.8-10.8)
[2017-01-10 00:16] LABS: ADD UMIC YES; UR ASCORBIC ACID 20 mg/dL (NEGATIVE); UR BACTERIA FEW /HPF (NONE SEEN); UR BILIRUBIN (Dip) NEGATIVE (NEGATIVE); UR BLOOD (Dip) NEGATIVE (NEGATIVE); UR CLARITY CLOUDY (CLEAR); UR COLOR YELLOW (YELLOW); UR GLUCOSE (Dip) NEGATIVE (NEGATIVE); UR KETONES (Dip) NEGATIVE (NEGATIVE); UR LEUKOCYTE ESTERASE (Dip) 3+ Leu/ul (NEGATIVE); UR MUCUS FEW /HPF (NONE SEEN); UR NITRITE (Dip) NEGATIVE (NEGATIVE); UR RBC 2 /HPF (0-5); UR SPECIFIC GRAVITY (Dip) 1.021 (1.003-1.030); UR SQUAMOUS EPITHELIAL CELL MODERATE /HPF (FEW); UR TOTAL PROTEIN (Dip) NEGATIVE (NEGATIVE); UR UROBILINOGEN (Dip) NEGATIVE (NEGATIVE)
[2017-01-10 00:25] LABS: ALBUMIN 4.2 g/dl (3.3-4.9); ALBUMIN/GLOBULIN RATIO 1.31; CALCIUM 9.9 mg/dl (8.4-10.2); CREATININE 0.44 mg/dl (0.44-1.00); POTASSIUM 3.3 mmol/L (3.5-5.1); TOTAL PROTEIN 7.4 g/dl (6.1-8.1)
--- NOTE | 2017-01-10 01:17 | RADRPT ---
PROCEDURE: ULTRASOUND OBSTETRICAL CLINICAL INDICATION: 26-year-old female with pelvic pain. TECHNIQUE: Multiple sonographic images of the pelvis were obtained. The images were reviewed on a PACS workstation. COMPARISON: No prior studies are available for comparison. FINDINGS: The cervix is not well visualized. There is a single viable intrauterine gestation. Cardiac activit y is present with 161 beats per minute. There is a breech presentation. Measurements were made in or erika to determine age. The results are as follows: BPD = 3.52 cm, HC = 12.58 cm, AC = 10.85 cm, FL = 1.93 cm. This yields and estimated gestational ag e of approximately 16 weeks 3 days. The estimated date of delivery is June 23, 2017. The EFW = 151 +/- 23 g. The placenta is anterior. There is no evidence for an abruption or placenta previa. There is an adequate amount of amniotic fluid with a maximal vertical pocket of 5.2 cm. IMPRESSION: Single viable intrauterine gestation of approximately 16 weeks 3 days. The estimated date of delive ry is June 23, 2017. .Carrington Zheng MD, Date Time Electronically viewed and signed by .Carrington Zheng MD, MD on 01/10/2017 01:16 .M/
[2017-01-10] MEDS ORDERED: NITR-58 PO (02:11)
[2017-01-10] MEDS ORDERED: ACET500C5 PO (02:12)
[2017-01-10] MEDS ORDERED: ONDA4TAB14 PO (02:12)
[2017-01-10] MEDS ORDERED: PRENAT PO (02:12)
== END 2017-01-10 02:49 | disposition left against medical advice (07) ==
LOC: FTE 22:22
DX: O99.342 Other mental disorders complicating pregnancy, second trimester (principal); F41.9 Anxiety disorder, unspecified; O23.42 Unspecified infection of urinary tract in pregnancy, second trimester; J45.909 Unspecified asthma, uncomplicated; O99.512 Diseases of the respiratory system complicating pregnancy, second trimester; Z3A.16 16 weeks gestation of pregnancy; Z87.891 Personal history of nicotine dependence
CPT/HCPCS: 36415; 76805; 80053; 81001; 82150; 83690; 84702; 85025; 86900; 86901

== ENCOUNTER 2017-01-14 05:27 | Emergency (ER) | payer OTHER ==
[~2017-01-14] VITALS: Ht 167.6 cm; Wt 151.0 kg
[~2017-01-14 05:27] MED LIST changes: +NITR-58 PO; +ONDA4TAB14 PO; +PRENAT PO
[2017-01-14 05:31] VITALS: Ht 167.6 cm; Wt 151.0 kg
--- NOTE | 2017-01-14 06:59 | ERD ---
ER Documentation Chief Complaint Date/Time DATE: 01/14/17 TIME: 06:38 Chief Complaint swelling all over body and pain, 17 weeks preg HPI 26-year-old female presents to emergency department for multiple complaints including swelling all over her body and pain. Stated that she feels anxious. She is 17 weeks . Was seen by myself on January 09. Past medical history of anxiety. Denies headache, loss of consciousness, dizziness, blurry vision, changes in vision, photophobia, facial pain, ear pain, throat pain, difficulty swallowing, neck pain, shoulder pain, chest pain, cough, hemoptysis, abdominal pain, back pain, loss of appetite, nausea, vomiting, hematochezia, diarrhea, constipation, urinary symptoms, vaginal bleeding, bladder and bowel incontinences, extremity weakness, extremity tenderness, numbness or tingling sensation, difficulty walking, recent travel, recent exposure to illness, recent antibiotic use in the last 3 months, fever, chills. Allergy: No known drug allergies. PMH: Anxiety. Family medical history: AO LMP: 09/08/2016. [place]: 06/22/2017. Medications: vitamins. Surgery: Denies. 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 Denies smoking, use of alcohol, use of illegal drugs. Unremarkable physical examination. ROS All systems reviewed and are negative except as per history of present illness. Medications Home Meds Active Scripts Acetaminophen* (Tylophen*) 500 Mg Capsule, 1 CAP PO Q6H Y for PAIN AND OR ELEVATED TEMP, #20 CAP Prov:KIERSTEN MCNAMARA 01/14/17 Multivit/Min/Fol Ac/Iron/Pren* ( S*) 1 Tab Tab, 1 TAB PO DAILY, #30 TAB Prov:KIERSTEN MCNAMARA 01/10/17 Ondansetron (Ondansetron Odt) 4 Mg Tab.rapdis, 4 MG PO Q8, #10 TAB Prov:KIERSTEN MCNAMARA 01/10/17 Acetaminophen* (Tylophen*) 500 Mg Capsule, 1 CAP PO Q6H Y for PAIN AND OR ELEVATED TEMP, #20 CAP Prov:KIERSTEN MCNAMARA 01/10/17 Nitrofurantoin Monohyd Macrocr* (Macrobid*) 100 Mg Capsr, 100 MG PO BID for 7 Days, CAP Prov:KIERSTEN MCNAMARA 01/10/17 Metoclopramide* (Reglan*) 10 Mg Tablet, 10 MG PO TID, #20 TAB Prov:ROYCE THOMAS MD 01/04/17 Acetaminophen* (Tylophen*) 500 Mg Capsule, 1 CAP PO Q6H Y for PAIN AND OR ELEVATED TEMP, #20 CAP Prov:ROYCE THOMAS MD 12/31/16 Electrolyte,Oral (Pedialyte) 1,000 Ml Solution, 100 ML PO Q6 Y for DIARRHEA, # 1000 ML Prov:CATHERINE CASANOVA PA-C 07/06/16 Loperamide Hcl* (Imodium*) 2 Mg Capsule, 2 MG PO .AFTER EA LOOSE BM Y for DIARRHEA, #10 TAB Prov:CATHERINE CASANOVA PA-C 07/06/16 Ondansetron Hcl* (Zofran*) 4 Mg Tablet, 4 MG PO Q6H for NAUSEA AND/OR VOMITING, #30 TAB Prov:CATHERINE CASANOVA PA-C 07/06/16 Hydrocodone Bit-Acetaminophen ([place]) 5-325 Mg Tablet, 1 TAB PO DAILY Y for PAIN for 7 Days, #7 TAB 0 Refills Prov:JENI CLINTON PA-C 01/06/16 Albuterol Sulfate* (Albuterol Sulfate* HFA) 8.5 Gm Hfa.aer.ad, 1-2 PUFF INH Q4 Y for SHORTNESS OF BREATH, #1 EA Prov:CHO,ROBINSON 12/15/14 Lorazepam* (Ativan*) 0.5 Mg Tablet, 0.5 MG PO Q8, #10 Prov:CHO,ROBINSON 12/15/14 Allergies Allergies: Coded Allergies: aspirin (Verified Allergy, Unknown, 01/04/17) diphenhydramine (Verified Allergy, Unknown, mouth swelling, 01/04/17) PMhx/Soc Medical and Surgical Hx: pt denies Medical Hx, pt denies Surgical Hx Hx Respiratory Disorders: Yes (Asthma) Hx Psychiatric Problems: Yes (anxiety, depression) Hx Alcohol Use: Yes (QUIT) Hx Substance Use: No Hx Tobacco Use: Yes (QUIT) Smoking Status: Never smoker Physical Exam Vitals Vital Signs Date Time Temp Pulse Resp B/P Pulse Ox O2 Delivery O2 Flow Rate FiO2 01/14/17 05:31 98.3 105 18 148/67 96 Physical Exam CONSTITUTIONAL: Well-appearing; well-nourished; in no apparent distress. HEAD: Normocephalic; atraumatic. EYES: Conjunctiva clear, sclera non-icteric, EOM intact. PERRL Ears: Hearing intact. EACs clear, TMs non-bulging, non-inflamed, translucent & mobile, ossicles normal appearance, No obstructions, no erythema, no discharges Nose: No obstructions. No polyps. No external lesions. Mucosa non-inflamed. No external lesions, septum and turbinates normal. No rhinorrhea. No discharges. Frontal sinus is non-tender to palpation. Maxillary sinus is non-tender to palpation. MOUTH: Moist mucous membranes, no lesion, no obstructions, no vesicles, no thrush, patent airway Throat: Uvula in midline. Right tonsil is +1 with no erythema, no exudate. Left tonsil is +1 with no erythema, no exudate. Tolerating secretions well. Good gag reflex. Patent airway. Neck: Supple, without lesions, bruits, or adenopathy. No mass. Thyroid non- enlarged and non-tender to palpation. CHEST: Symmetrical chest. Respirations even and not labored. No retractions noted. CARDIOVASCULAR: Normal S1, S2. RRR. No murmurs, gallops. RESPIRATORY: Normal chest excursion with respiration; breath sounds clear and equal bilaterally; no wheezes, rhonchi, or rales. Breathing even and unlabored. Speaking in clear, full, and complete sentences w/ ease. ABDOMEN: Normal bowel sounds normal. Soft, round, non-distended, non-guarding, no tenderness, no rebound, no organomegaly, no masses, no pulsating abdominal mass. No hernia. No peritoneal signs. : No CVA tenderness. BACK: Symmetrical shoulder. Spine is midline without deformity, tenderness. No evidence of trauma or deformity. PELVIS: Stable pelvis. No evidence of trauma or deformity. MUSCULOSKELETAL: Normal gait and station. No misalignment, asymmetry, crepitation, defects, tenderness, masses, effusions, decreased range of motion, instability, atrophy or abnormal strength or tone in the head, neck, spine, ribs , pelvis or extremities. Bilateral upper and lower extremities is no obvious deformity/discoloration. Bilateral upper and lower extremity has good and full range of motion. No edema on bilateral upper and lower extremities. No neurovascular deficits. No evidence of trauma. No calf tenderness. NEUROVASCULAR: Distal pulses are present. Pedal pulse are present, equal, and normal. Capillary refills are < 2 seconds. NEUROLOGIC: Alert and oriented x4. Speaks full and clear sentences. Cranial Nerves II-XII normal. Sensation to pain, touch, and proprioception normal. Grossly unremarkable. No neurologic deficits. Romberg test is negative. PSYCHOLOGICAL: The patients mood and manner are appropriate. No hallucinations , delusions. Not SI. Not HI. Has the capacity to decide for self SKIN: Normal for age and ethnicity; warm; dry; good turgor; no apparent lesions or exudates. No rashes, hives, discoloration. Intact. Procedures/MDM Examination: Please see physical examination. Disease process, medical treatment was explained to the patient and family member. They verbalized understanding and agreed with the medical treatment, and follow-up care. Re-evaluation: Denies headache, dizziness, blurry vision, neck pain, shoulder pain, chest pain, back pain, abdominal pain, nausea, vomiting. No episode of emesis in the emergency department. Alert and oriented 4. Speaks full and clear sentences. Respirations even and unlabored. Lung sounds clear to auscultation. Active bowel sounds. There is no right upper/right lower/ epigastric/left upper/left lower abdominal tenderness and light and deep palpation. No peritoneal signs. Ambulatory with steady gait. Musculoskeletal reexamination is unremarkable. No neurovascular deficits. No neurological deficits. Consultation: None. Differential diagnosis: Fracture versus contusion versus sprain versus anxiety Medical decision makin-year-old female presents to emergency department for multiple complaints including swelling all over her body and pain. Stated that she feels anxious. She is 17 weeks . Was seen by myself on January 09. Past medical history of anxiety. Patient's complaint, patient history about her complaint, my physical findings, my reevaluation are consistent my final diagnosis of anxiety. Agreed with the plan of care to to be discharged and just follow-up with her primary care physician/OB specialist. Hemodynamically stable on discharge. Medications prescribed are the following: Continue her prescription medications at home. Patient and family member are made aware of the side effects and adverse reactions of the medications prescribed. Instructed on when to seek emergent and medical attention in case allergic/anaphylactic reactions or severe side effects and or adverse reactions to medications. Patient and family member verbalized understanding. Patient instructed Instructed to follow-up with his PCP in 24-48 hours. Will update OB in the next 24-48 hours. Instructed to Call 911 for chest pain, shortness of breath. Advised to come back here in ED as soon as possible for severity of symptoms which includes but not limited to: any new symptoms; shortness of breath/difficulty of breathing; cardiovascular changes; severe gastrointestinal symptoms; signs and symptoms of bleeding and or infection; signs of compartment syndrome/neurovascular changes; neurological changes/deficits. Patient and family member verbalized understanding. Upon discharge, patient is alert and oriented x 4, speaks full and clear sentences, denies pain, has no neurological deficits, has no neurovascular deficits, difficulty of breathing. Breathing even and unlabored. Lung sounds are clear to auscultation. Not in distress. Appears comfortable. Ambulatory with steady gait. Appears satisfied with care provided here in ED. Departure Diagnosis: Primary Impression: Anxiety Additional Impression: Arm pain Condition: Good Additional Instructions: Instructed to follow-up with his PCP in 24-48 hours. Will update OB in the next 24-48 hours. Instructed to Call 911 for chest pain, shortness of breath. Advised to come back here in ED as soon as possible for severity of symptoms which includes but not limited to: any new symptoms; shortness of breath/difficulty of breathing; cardiovascular changes; severe gastrointestinal symptoms; signs and symptoms of bleeding and or infection; signs of compartment syndrome/neurovascular changes; neurological changes/deficits. Patient and family member verbalized understanding. KIERSTEN MCNAMARA Jan 14, 2017 06:58
[2017-01-14] MEDS ORDERED: ACET500C5 PO (07:00)
== END 2017-01-14 07:26 | disposition home or self-care (01) ==
LOC: FTE 05:27
DX: O99.342 Other mental disorders complicating pregnancy, second trimester (principal); F41.9 Anxiety disorder, unspecified; M79.603 Pain in arm, unspecified; O99.512 Diseases of the respiratory system complicating pregnancy, second trimester; J45.909 Unspecified asthma, uncomplicated; Z3A.17 17 weeks gestation of pregnancy; Z87.891 Personal history of nicotine dependence
CPT/HCPCS: 99283

== ENCOUNTER 2017-01-28 08:21 | Emergency (ER) | payer OTHER ==
[~2017-01-28] VITALS: Ht 160 cm; Wt 114.0 kg
[2017-01-28 08:24] VITALS: Ht 160 cm; Wt 114.0 kg
--- NOTE | 2017-01-28 09:18 | RADRPT ---
PROCEDURE: US OB. CLINICAL INDICATION: Size and dates. TECHNIQUE: Multiple sonographic images of the pelvis were obtained. Transabdominal imaging only w as performed. COMPARISON: 01/09/2017. FINDINGS: Cardiac activity is present with 146 beats per minute. Presentation is breech/very well. Measurements were made in order to determine age. The results are as follows: BPD = 19 weeks 2 days HC = 19 weeks 0 days AC = 19 weeks 3 days FL = 19 weeks 3 days Estimated weight is 290 g. The placenta is anterior, with no evidence of previa. Amniotic fluid volume is subjectively within normal limits. IMPRESSION: Single, live intrauterine with estimated age of 19 weeks, 2 days on the basis of thi s examination. Limited examination demonstrates no significant abnormality. RPTAT: EE .Cedric Gonzalez MD, Date Time Electronically viewed and signed by .Cedric Gonzalez MD, on 01/28/2017 09:23 .C/
[2017-01-28 09:48] LABS: BASOPHILS % 0.2 % (0.0-2.0); EOSINOPHILS # 0.1 10^3/ul (0.0-0.5); EOSINOPHILS % 0.7 % (0.0-7.0); HEMATOCRIT 31.4 % (37.0-47.0); HEMOGLOBIN 10.2 g/dl (12.0-16.0); LYMPHOCYTES # 2.2 10^3/ul (0.8-2.9); LYMPHOCYTES % 18.4 % (15.0-51.0); MEAN CORPUSCULAR HEMOGLOBIN 24.2 pg (29.0-33.0); MEAN CORPUSCULAR HGB CONC 32.5 g/dl (32.0-37.0); MEAN CORPUSCULAR VOLUME 74.4 fl (82.0-101.0); MEAN PLATELET VOLUME 9.4 fl (7.4-10.4); MONOCYTE # 0.5 10^3/ul (0.3-0.9); MONOCYTES % 4.2 % (0.0-11.0); NEUTROPHIL # 9.2 10^3/ul (1.6-7.5); PLATELET COUNT 327 10^3/UL (140-415); RED BLOOD COUNT 4.22 10^6/ul (4.20-5.40); RED CELL DISTRIBUTION WIDTH 14.5 % (11.5-14.5); WHITE BLOOD COUNT 12.2 10^3/ul (4.8-10.8)
[2017-01-28 10:12] LABS: ALBUMIN 3.6 g/dl (3.3-4.9); ALBUMIN/GLOBULIN RATIO 1.05; CALCIUM 8.9 mg/dl (8.4-10.2); CREATININE 0.61 mg/dl (0.44-1.00); POTASSIUM 3.4 mmol/L (3.5-5.1)
[2017-01-28 10:45] LABS: ADD UMIC YES; UR ASCORBIC ACID NEGATIVE (NEGATIVE); UR BILIRUBIN (Dip) NEGATIVE (NEGATIVE); UR BLOOD (Dip) NEGATIVE (NEGATIVE); UR CLARITY SLIGHTLY CLOUDY (CLEAR); UR COLOR YELLOW (YELLOW); UR GLUCOSE (Dip) NEGATIVE (NEGATIVE); UR KETONES (Dip) TRACE mg/dL (NEGATIVE); UR LEUKOCYTE ESTERASE (Dip) TRACE Leu/ul (NEGATIVE); UR NITRITE (Dip) NEGATIVE (NEGATIVE); UR RBC 1 /HPF (0-5); UR SPECIFIC GRAVITY (Dip) 1.014 (1.003-1.030); UR SQUAMOUS EPITHELIAL CELL FEW /HPF (FEW); UR TOTAL PROTEIN (Dip) NEGATIVE (NEGATIVE); UR UROBILINOGEN (Dip) NEGATIVE (NEGATIVE)
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
[2017-01-28 11:12] VITALS: BP 132/76; PULSE 71; RESP 18; TEMP 98.4
== END 2017-01-28 11:13 | disposition home or self-care (01) ==
LOC: FTE 08:21
DX: O9A.212 Injury, poisoning and certain other consequences of external causes complicating pregnancy, second trimester (principal); S39.91XA Unspecified injury of abdomen, initial encounter; R10.2 Pelvic and perineal pain; O99.512 Diseases of the respiratory system complicating pregnancy, second trimester; J45.909 Unspecified asthma, uncomplicated; Y04.2XXA Assault by strike against or bumped into by another person, initial encounter; Z3A.19 19 weeks gestation of pregnancy; Z87.891 Personal history of nicotine dependence
CPT/HCPCS: 36415; 76805; 80053; 81001; 84702; 85025; 86900; 86901

== ENCOUNTER 2017-02-16 23:43 | Outpatient (CLI) | payer OTHER ==
[~2017-02-16] VITALS: Ht 167.6 cm; Wt 151.6 kg
[2017-02-17 00:24] VITALS: Ht 167.6 cm; Wt 151.6 kg
[2017-02-17 00:25] VITALS: BP 133/79; PULSE 100; RESP 18
[2017-02-17 02:19] LABS: URINE BLOOD (Dip) POC Negative (NEGATIVE)
[2017-02-17 02:56] LABS: ADD UMIC YES; UR ASCORBIC ACID NEGATIVE (NEGATIVE); UR BILIRUBIN (Dip) NEGATIVE (NEGATIVE); UR BLOOD (Dip) NEGATIVE (NEGATIVE); UR CLARITY CLOUDY (CLEAR); UR COLOR YELLOW (YELLOW); UR GLUCOSE (Dip) NEGATIVE (NEGATIVE); UR KETONES (Dip) TRACE mg/dL (NEGATIVE); UR LEUKOCYTE ESTERASE (Dip) 3+ Leu/ul (NEGATIVE); UR MUCUS FEW /HPF (NONE SEEN); UR NITRITE (Dip) NEGATIVE (NEGATIVE); UR RBC 2 /HPF (0-5); UR SPECIFIC GRAVITY (Dip) 1.025 (1.003-1.030); UR SQUAMOUS EPITHELIAL CELL MANY /HPF (FEW); UR TOTAL PROTEIN (Dip) NEGATIVE (NEGATIVE); UR UROBILINOGEN (Dip) NEGATIVE (NEGATIVE)
--- NOTE | 2017-02-17 02:57 | RADRPT ---
PROCEDURE: US OB amniotic fluid index. CLINICAL INDICATION: Cramps. Clinical estimate gestational age is 22 weeks 1 day with estimated date of delivery 06/22/2017. TECHNIQUE: Multiple sonographic images of the pelvis were obtained. The images were reviewed on a PACS workstation. COMPARISON: 01/28/2017 FINDINGS: The cervix is closed with a length of 3.7 cm on transvaginal ultrasound. There is a single live intrauterine gestation. Cardiac activity is present with 144 beats per minut e. There is a cephalic position. The placenta is anterior and grade 1. There is no evidence for an abruption or placenta previa. There is a normal amount of amniotic fluid with maximal vertical pocket of 5.2 cm. IMPRESSION: Single live intrauterine gestation. There is a normal amount of amniotic fluid with maximal vertical pocket of 5.2 cm. RPTAT: HJES .Alex Middleton MD, Date Time Electronically viewed and signed by .Alex Middleton MD, on 02/17/2017 02:56 .S/
--- NOTE | 2017-02-17 03:56 | PN ---
Triage Information Date/Time 02/17/17 0350 Reason for visit: Abd/pelvic pain Weeks of Gestation 22w /Para Diabetes: none Hypertention: none Objective Vital Signs Date Time Temp Pulse Resp B/P Pulse Ox O2 Delivery O2 Flow Rate FiO2 02/17/17 00:25 98.5 100 18 133/79 Room Air Heart Rate: 140's Contractions: None Exam CVA neg for tenderness Results/Medications Results 24 hrs Laboratory Tests Test 02/17/17 01:20 02/17/17 02:27 Urine Color YELLOW Urine Clarity CLOUDY A Urine pH 5.0 Urine Specific [place] 1.025 Urine Ketones TRACE A Urine Nitrite NEGATIVE Urine Bilirubin NEGATIVE Urine Urobilinogen NEGATIVE Urine Leukocyte Esterase 3+ H Urine Microscopic RBC 2 Urine Microscopic WBC 34 H Urine Squamous Epithelial Cells MANY A Urine Mucus FEW A Urine Hemoglobin NEGATIVE Urine Glucose NEGATIVE Urine Total Protein NEGATIVE Bedside Urine pH (LAB) 5.5 Bedside Urine Protein (LAB) Negative Bedside Urine Glucose (UA) Negative Bedside Urine Ketones (LAB) 1+ H Bedside Urine Blood Negative Bedside Urine Nitrite (LAB) Negative Bedside Urine Leukocyte Esterase (L 1+ H Medications macrobid BID #20 Imaging Results CVL 3.7 MVP 5.2 Disposition: Discharge Assessment/Plan IUP 22w UTI EMMANUEL MAURER MD Feb 17, 2017 03:56
== END 2017-02-17 03:33 | disposition home or self-care (01) ==
LOC: OBT 23:43 → L-D 23:44 → OBT 02-17 03:33
PROVIDERS: ATTEND Obstetrics & Gynecology
DX: O26.892 Other specified pregnancy related conditions, second trimester (principal); Z3A.22 22 weeks gestation of pregnancy; R10.2 Pelvic and perineal pain
CPT/HCPCS: 76815; 76817; 81001; 81003; 87086; G0463

== ENCOUNTER 2017-05-02 21:54 | Outpatient (CLI) | payer OTHER ==
[~2017-05-02] VITALS: Ht 167.6 cm; Wt 155.1 kg
[~2017-05-02 21:54] MED LIST changes: -ACET500C5 PO; -ELEC100080 PO; -HYDR-906 PO; -LOPE2CAP PO; -LORA-441 PO; -METO10TA92 PO; -NITR-58 PO; -ONDA4TAB14 PO; -ONDA4TAB8 PO
[2017-05-02 22:35] VITALS: BP 134/77; PULSE 92; RESP 18; Ht 167.6 cm; Wt 155.1 kg
--- NOTE | 2017-05-02 23:54 | RADRPT ---
PROCEDURE: OB ultrasound for biophysical profile with DELFINA. CLINICAL INDICATION: labor. TECHNIQUE: Multiple sonographic images of the gravid uterus were obtained. COMPARISON: Ultrasound dated 02/17/2017. FINDINGS: breathing movement = 2/2 tone = 2/2 motion = 2/2 DELFINA = 2/2 Single viable intrauterine gestation. Heart rate: 133 bpm. Presentation: Cephalic. Placenta: Anterior, grade 1. No evidence of abruption or placenta previa. DELFINA = 13.9 cm Cervical length: 3.1 cm. IMPRESSION: 1. Single viable intrauterine gestation. 2. Biophysical profile = 8. 3. DELFINA = 13.9 cm. RPTAT: HLBP .Adam Holm MD, Date Time Electronically viewed and signed by .Adam Holm MD, MD on 05/02/2017 23:54 .P/
[2017-05-03 00:15] LABS: ADD UMIC YES; UR ASCORBIC ACID NEGATIVE (NEGATIVE); UR BACTERIA FEW /HPF (NONE SEEN); UR BILIRUBIN (Dip) NEGATIVE (NEGATIVE); UR BLOOD (Dip) NEGATIVE (NEGATIVE); UR CLARITY SLIGHTLY CLOUDY (CLEAR); UR COLOR YELLOW (YELLOW); UR GLUCOSE (Dip) NEGATIVE (NEGATIVE); UR KETONES (Dip) NEGATIVE (NEGATIVE); UR LEUKOCYTE ESTERASE (Dip) TRACE Leu/ul (NEGATIVE); UR NITRITE (Dip) NEGATIVE (NEGATIVE); UR RBC 2 /HPF (0-5); UR SPECIFIC GRAVITY (Dip) 1.014 (1.003-1.030); UR SQUAMOUS EPITHELIAL CELL FEW /HPF (FEW); UR TOTAL PROTEIN (Dip) NEGATIVE (NEGATIVE); UR UROBILINOGEN (Dip) NEGATIVE (NEGATIVE)
--- NOTE | 2017-05-03 02:44 | TRIAGE ---
OB Triage Datetime Report Generated by CPN: 05/03/2017 02:43 Datetime: 05/03/2017 01:02 Stage of : OB Triage Labor Evaluation Frequency: 0 Monitor Mode: External Pattern: Normal: <= 5 Contractions in 10 Minutes Resting Tone Orchid: Relaxed Monitor Mode: External US Pain Assessment Pain Scale: 3 Pain Presence: Intermittent Pain Type: Cramping Pain Location: Abdomen Pain Goal: 3 Pain Relief Measures: Comfort Measures Datetime: 05/03/2017 00:00 Stage of : OB Triage Labor Evaluation Frequency: X1 Monitor Mode: External Duration (sec)2399: 50 Quality: Mild Pattern: Normal: <= 5 Contractions in 10 Minutes Resting Tone [place]chid: Relaxed Heart Rate FHR Baseline Rate: 125 Monitor Mode: External US Variability: Moderate 6-25 bpm Accelerations: 15X15 Decelerations: None Category: Category I Pain Assessment Pain Scale: 5 Pain Presence: Intermittent Pain Type: Cramping Pain Location: Abdomen Pain Goal: 3 Pain Relief Measures: Comfort Measures Datetime: 05/02/2017 23:00 Stage of : OB Triage Labor Evaluation Frequency: 0 Monitor Mode: External Pattern: Normal: <= 5 Contractions in 10 Minutes Resting Tone Orchid: Relaxed Heart Rate FHR Baseline Rate: 130 Monitor Mode: External US Variability: Moderate 6-25 bpm Accelerations: 15X15 Decelerations: None Category: Category I Pain Assessment Pain Scale: 5 Pain Presence: Intermittent Pain Type: Cramping Pain Location: Abdomen (Annotations: LOWER) Pain Goal: 3 Pain Relief Measures: Comfort Measures Datetime: 05/02/2017 22:44 Time of Arrival: 05/02/2017 21:40 EGA: 32.5 Chief Complaint: CRAMPS AND VAGINAL PRESSURE SINCE 05/01/17 Movement: Present Contractions: Irregular Rupture of Membranes: Denies Vaginal Discharge: Denies Recent Sexual Intercouse: Denies Additional Patient Complaints: HX OF ASTHMA, ANXIETY AND DEPRESSION Time Provider Notified: 05/02/2017 22:53 Provider Notified: ARDALAN Initial Plan: EFM, ASSESSMENT Datetime: 05/02/2017 22:04 Stage of : OB Triage Maternal Assessment Temperature Route: Oral Datetime: 05/02/2017 00:00 Stage of : OB Triage Datetime: 02/17/2017 23:50 Fall Risk Assessment Fall Score: 0 Fall Risk Score Definition: No Risk: No action required Datetime: 02/17/2017 00:59 EGA: 22.0
--- NOTE | 2017-05-03 06:44 | PN ---
Triage Information Date/Time 05/02/2017 Reason for visit: labor Weeks of Gestation 32 weeks and 5 days /Para Diabetes: none Hypertention: none Additional information 26-year-old with IUP at 32 weeks and 5 days presented complaining of contractions. She denies any leaking of fluid, vaginal bleeding or decreased movement. She was diagnosed with GDM about 2 weeks ago. Objective Vital Signs Date Time Temp Pulse Resp B/P Pulse Ox O2 Delivery O2 Flow Rate FiO2 05/02/17 22:35 98.6 92 18 134/77 97 Room Air Heart Rate: 130's Exam General appearance: Alert and oriented 4. The patient does not appear to be in any acute distress. Abdomen: Soft, gravid, nontender, fundal height consistent with gestational age. NST: Category 1 Occasional ray contractions in the monitor Morbidly obese Results/Medications Results 24 hrs Laboratory Tests Test 05/02/17 23:05 Urine Color YELLOW Urine Clarity SLIGHTLY CLOUDY A Urine pH 6.0 Urine Specific [place] 1.014 Urine Ketones NEGATIVE Urine Nitrite NEGATIVE Urine Bilirubin NEGATIVE Urine Urobilinogen NEGATIVE Urine Leukocyte Esterase TRACE A Urine Microscopic RBC 2 Urine Microscopic WBC 4 Urine Squamous Epithelial Cells FEW Urine Calcium Oxalate Crystals MANY A Urine Bacteria FEW A Urine Hemoglobin NEGATIVE Urine Glucose NEGATIVE Urine Total Protein NEGATIVE Fibronectin NEGATIVE Imaging Results PROCEDURE: OB ultrasound for biophysical profile with DELFINA. CLINICAL INDICATION: labor. TECHNIQUE: Multiple sonographic images of the gravid uterus were obtained. COMPARISON: Ultrasound dated 02/17/2017. FINDINGS: breathing movement = 2/2 tone = 2/2 motion = 2/2 DELFINA = 2/2 Single viable intrauterine gestation. Heart rate: 133 bpm. Presentation: Cephalic. Placenta: Anterior, grade 1. No evidence of abruption or placenta previa. DELFINA = 13.9 cm Cervical length: 3.1 cm. IMPRESSION: 1. Single viable intrauterine gestation. 2. Biophysical profile = 8/8. 3. DELFINA = 13.9 cm. Disposition: Discharge Assessment/Plan IUP at 32 weeks and 5 days False labor pain Cervical length more than 3 cm No evidence of labor History of present labor precaution of the kick count and follow-up within 24- 40 hours with her primary OB discussed the patient. Patient verbalized understanding. TYE GARCIA MD May 03, 2017 06:44
== END 2017-05-03 01:21 | disposition home or self-care (01) ==
LOC: OBT 21:54 → L-D 21:57 → OBT 05-03 01:21
PROVIDERS: ATTEND Obstetrics & Gynecology Obstetrics
DX: O47.03 False labor before 37 completed weeks of gestation, third trimester (principal); O62.9 Abnormality of forces of labor, unspecified; Z3A.32 32 weeks gestation of pregnancy
CPT/HCPCS: 76817; 76818; 81001; 82731; G0463

== ENCOUNTER 2017-06-08 15:55 | Inpatient (IN) | payer OTHER ==
[~2017-06-08] VITALS: Ht 167.6 cm; Wt 158.4 kg
[2017-06-08 16:26] VITALS: Ht 167.6 cm; Wt 158.4 kg
[2017-06-08] MEDS ORDERED: BUTORPHANOL 2 MG INJ IV PRN (16:30)
[2017-06-08] MEDS ORDERED: MISOPROSTOL 200 MCG TAB PR PRN (16:30)
[2017-06-08] MEDS ORDERED: OXYTOCIN 30 UNITS/LR 500 ML IV PRN (16:30)
[2017-06-08] MEDS ORDERED: IBUPROFEN 600 MG TAB PO PRN (16:30)
[2017-06-08] MEDS ORDERED: OXYTOCIN 30 UNITS/LR 500 ML IV SCH ×3 (16:30→19:00)
[2017-06-08] MEDS ORDERED: LIDOCAINE 1% (MPF) 30 ML INJ INJ PRN (16:30)
[2017-06-08] MEDS ORDERED: CARBOPROST 250 MCG INJ IM PRN (16:30)
[2017-06-08] MEDS ORDERED: METHYLERGONOVINE 0.2 MG INJ IM PRN (16:30)
--- NOTE | 2017-06-08 16:46 | RADRPT ---
PROCEDURE: Obstetrical ultrasound. CLINICAL INDICATION: , evaluation. Pelvic pain. TECHNIQUE: Transabdominal sonographic images of the uterus obtained after first trimester , greater than 14 weeks gestation. Single intrauterine gestation present. COMPARISON: US PELVIS 05/02/2017 FINDINGS: Single intrauterine gestation. There is a cephalic presentation. Measurements were made in order to determine age. The results are as follows: Head to low activity visualized for biometry. AC = 41 weeks 0 day(s) FL = 40 weeks 3 day(s) DELFINA = not measured. Heart rate = 152 beats per minute The placenta is anterior. There is no evidence for an abruption or placenta previa. Ovaries are not visualized. IMPRESSION: Single intrauterine gestation of approximately 40 weeks 5 days by ultrasound criteria. [place] estimated weight = 4216 g; >97 percentile for gestational age of 38 weeks 1 days. Biometry only based abdominal circumference and femur length due to inadequate visualization of the head. RPTAT: AADD .Will Arredondo MD, MD Date Time Electronically viewed and signed by .Will Arredondo MD, on 06/08/2017 16:46 .B/
--- NOTE | 2017-06-08 16:54 | TRIAGE ---
OB Triage Datetime Report Generated by CPN: 06/08/2017 16:53 Datetime: 06/08/2017 16:19 Time of Arrival: 06/08/2017 15:40 EGA: 38.1 Arrived By: Ambulatory Arrived From: Home Chief Complaint: SROM Movement: Present Contractions: Regular Rupture of Membranes: Ruptured Vaginal Bleeding: Normal Show Vaginal Discharge: Denies Recent Sexual Intercouse: Denies Abdominal Trauma: Not Applicable Patient Complaints: Other Time Provider Notified: 06/08/2017 16:16 Provider Notified: Ghayoori Initial Plan: VE, NST Datetime: 06/08/2017 16:00 Assessment Type: Triage Maternal Assessment Level of Consciousness: Fully Conscious DTR's/Clonus: DTRs 2+; No Clonus Headache: Denies Blurred Vision: No Respiratory Effort: Unlabored; Regular Rhythm; Equal Expansion Breath Sounds, Left: Clear and Equal Breath Sounds, Right: Clear and Equal Nausea/Vomiting: Denies RUQ Epigastric Pain: Denies Lower Extremities Edema: Bilateral Lower Extremities Degree: 2+ Upper Extremities Edema: Bilateral Upper Extremities Degree: 2+ Facial Edema: None Fall Risk Assessment History of Falling: (0) No Secondary Diagnosis: (0) No Ambulatory Aid: (0) Bedrest/Nurse Assist IV Therapy: (0) No Gait: (0) Normal/Bedrest/Immobile Mental Status: (0) Oriented to Own Ability Fall Score: 0 Fall Risk Score Definition: No Risk: No action required Datetime: 05/02/2017 22:44 EGA: 32.6 Datetime: 02/17/2017 23:50 Fall Score: 0 Fall Risk Score Definition: No Risk: No action required Datetime: 02/17/2017 00:59 EGA: 22.1
[2017-06-08 17:05] LABS: BASOPHILS % 0.2 % (0.0-2.0); EOSINOPHILS # 0.1 10^3/ul (0.0-0.5); EOSINOPHILS % 0.5 % (0.0-7.0); HEMATOCRIT 33.3 % (37.0-47.0); LYMPHOCYTES # 2.7 10^3/ul (0.8-2.9); LYMPHOCYTES % 21.7 % (15.0-51.0); MEAN CORPUSCULAR HEMOGLOBIN 24.3 pg (29.0-33.0); MEAN CORPUSCULAR VOLUME 73.7 fl (82.0-101.0); MEAN PLATELET VOLUME 9.7 fl (7.4-10.4); MONOCYTE # 0.7 10^3/ul (0.3-0.9); MONOCYTES % 5.8 % (0.0-11.0); NEUTROPHIL # 8.9 10^3/ul (1.6-7.5); NEUTROPHILS % 71.3 % (39.0-77.0); PLATELET COUNT 281 10^3/UL (140-415); RED BLOOD COUNT 4.52 10^6/ul (4.20-5.40); RED CELL DISTRIBUTION WIDTH 15.3 % (11.5-14.5); WHITE BLOOD COUNT 12.5 10^3/ul (4.8-10.8)
[2017-06-08] MEDS: LACTATED RINGER'S 1,000 ML IV SCH ×3 (17:13→18:44)
[2017-06-08 17:22] LABS: INR 0.95; PROTIME 12.8 Sec (11.9-14.9)
[2017-06-08 17:23] LABS: PARTIAL THROMBOPLASTIN TIME 27.4 Sec (25.0-35.0)
--- NOTE | 2017-06-08 17:26 | HP ---
Date/Time of Note Date/Time of Note DATE: 06/08/17 TIME: 17:25 OB - History Hx of Present : 1 Para: 0 Care: Good Care Ultrasounds: Normal mid trimester US Obstetrical Complications: None Medical Complications: None Past Family/Social History * Past Medical, Surgical, Family and Obstetric Histories reviewed from chart. OB Admission Exam Physical Exam Abdomen: WNL Extremities: Normal Cervical Dilatation: 4cm Effacement: 75% Station: -1 Membranes: Ruptured Heart Rate: 140's Accelerations: Accelerations Present Decelerations: No Decelerations Varibility: Moderate Contractions on Admission: < 5 Minutes Apart Last 72 hours Lab Results CBC & BMP 06/08/17 16:55 OB Assessment/Plan Reason for admission: observation Plan: Expectant Management VANITA SILVER M.D. Jun 08, 2017 17:26
[2017-06-08] MEDS ORDERED: MINERAL OIL LIGHT 10 ML VIAL TOP PRN (17:30)
[2017-06-08] MEDS ORDERED: FENTAnyl 2MCG/ML-ROPIV 0.2% 100 ML ONE (17:58)
[2017-06-08] MEDS ORDERED: NALOXONE (0.4 MG/ML) INJ IV PRN (18:30)
[2017-06-08 18:47] VITALS: BP 125/58; PULSE 91; RESP 20
[2017-06-08] MEDS: FENTAnyl 2MCG/ML-ROPIV 0.2% 100 ML BAG EPI SCH (18:47)
[2017-06-09] MEDS: FENTAnyl 2MCG/ML-ROPIV 0.2% 100 ML BAG EPI SCH (01:19)
[2017-06-09] MEDS: LACTATED RINGER'S 1,000 ML IV SCH (02:48)
--- NOTE | 2017-06-09 05:03 | LDN ---
Date/Time of Note Date/Time of Note DATE: 06/09/17 TIME: 05:01 Delivery Summary normal vaginal delivery Weeks of Gestation 38w1d Placenta Delivered: Spontaneously Meconium: none Episiotomy: No Perineal laceration: 2 Laceration repair: 00ch gut Anesthesia type: Epidural Estimated blood loss: 200 Sponge & Needle done & correct: Yes All needle counts correct: Yes Any foreign bodies felt in the: No Problems: Delivery Information Sex Sex: male Apgars 1 Minute: 8 5 Minute: 9 Suctioning Nose & mouth suctioned at toni: Yes Delee suction performed: No Umbilical Cord Umbilical cord with: 3 Vessels Cord presentations: no nuchal cord Cord Blood was obtained: Yes Mother & Baby Disposition Disposition Mom & Baby to Maternity; Good: Yes Mom transferred to: Other Baby to NICU: No () EMMANUEL MAURER MD Jun 09, 2017 05:03
[2017-06-09 06:15] VITALS: BP 122/64; PULSE 72; RESP 20
[2017-06-09] MEDS ORDERED: OXYCODONE/ASPIRIN (4.88/325) TAB PO PRN ×2 (07:00)
[2017-06-09] MEDS ORDERED: IBUPROFEN 600 MG TAB PO SCH (07:00)
[2017-06-09] MEDS ORDERED: OXYTOCIN 30 UNITS/LR 500 ML IV PRN (07:00)
[2017-06-09] MEDS ORDERED: ALBUTEROL HFA 8 GM INHALER INH PRN (07:00)
[2017-06-09] MEDS ORDERED: WITCH HAZEL/GLYCERIN PAD PR PRN (07:00)
[2017-06-09] MEDS ORDERED: ZOLPIDEM 5 MG TAB PO PRN (07:00)
[2017-06-09] MEDS ORDERED: CARBOPROST 250 MCG INJ IM PRN (07:00)
[2017-06-09] MEDS ORDERED: MISOPROSTOL 200 MCG TAB PR PRN (07:00)
[2017-06-09] MEDS ORDERED: ACETAMINOPHEN 325 MG TAB PO PRN (07:00)
[2017-06-09] MEDS ORDERED: METHYLERGONOVINE 0.2 MG INJ IM PRN (07:00)
[2017-06-09] MEDS ORDERED: LANOLIN 7 GM TUBE TOP PRN (07:00)
[2017-06-09 08:54] VITALS: BP 132/60; PULSE 93; RESP 16
[2017-06-09] MEDS: SENNA/DOCUSATE NA (8.6MG/50MG) TAB PO SCH ×2 (09:18→21:06)
[2017-06-09] MEDS: PRENATAL VITAMIN PO SCH (09:18)
[2017-06-09 12:14] VITALS: BP 140/71; PULSE 88; RESP 18
[2017-06-09] MEDS: IBUPROFEN 600 MG TAB PO SCH ×3 (12:37→23:35)
[2017-06-09 16:09] VITALS: BP 112/85; PULSE 80; RESP 14
[2017-06-09] MEDS: BENZOCAINE 20% 56 ML SPRAY TOP PRN (17:39)
[2017-06-09 20:10] VITALS: BP 132/63; PULSE 85; RESP 17
[2017-06-10 04:10] VITALS: BP 114/58; PULSE 79; RESP 20
[2017-06-10] MEDS: IBUPROFEN 600 MG TAB PO SCH ×3 (05:28→18:26)
[2017-06-10 08:00] VITALS: BP 132/71; PULSE 84; RESP 19
[2017-06-10 08:05] LABS: BASOPHILS % 0.2 % (0.0-2.0); EOSINOPHILS # 0.1 10^3/ul (0.0-0.5); EOSINOPHILS % 0.8 % (0.0-7.0); HEMATOCRIT 29.5 % (37.0-47.0); HEMOGLOBIN 9.4 g/dl (12.0-16.0); LYMPHOCYTES # 2.6 10^3/ul (0.8-2.9); LYMPHOCYTES % 19.8 % (15.0-51.0); MEAN CORPUSCULAR HEMOGLOBIN 24.1 pg (29.0-33.0); MEAN CORPUSCULAR HGB CONC 31.9 g/dl (32.0-37.0); MEAN CORPUSCULAR VOLUME 75.6 fl (82.0-101.0); MEAN PLATELET VOLUME 9.5 fl (7.4-10.4); MONOCYTE # 0.7 10^3/ul (0.3-0.9); MONOCYTES % 5.1 % (0.0-11.0); NEUTROPHIL # 9.6 10^3/ul (1.6-7.5); NEUTROPHILS % 73.6 % (39.0-77.0); PLATELET COUNT 239 10^3/UL (140-415); RED CELL DISTRIBUTION WIDTH 15.5 % (11.5-14.5)
[2017-06-10] MEDS: SENNA/DOCUSATE NA (8.6MG/50MG) TAB PO SCH ×2 (09:34→21:17)
[2017-06-10] MEDS: PRENATAL VITAMIN PO SCH (09:35)
--- NOTE | 2017-06-10 11:25 | QN ---
Documentation Comment PPD#1 is stable afebrile tolerates diet No VB +Voids +BM Vs stable Gen NAD Abd soft NT ND Genitalia No Blood at perinium --->discharge home VANITA SILVER M.D. Jun 10, 2017 11:25
--- NOTE | 2017-06-10 11:27 | DS ---
Date/Time of Note Date/Time of Note DATE: 06/10/17 TIME: 11:26 Discharge Summary Admission/Discharge Info Admit Date/Time Jun 08, 2017 at 16:16 Discharge Date/Time 06/11/2017 Discharge Diagnosis post Patient Condition: Good Procedures vaginal delivery Hospital Course uneventful Home Meds Active Scripts Multivit/Min/Fol Ac/Iron/Pren* ( S*) 1 Tab Tab, 1 TAB PO DAILY, #30 TAB Prov:KIERSTEN MCNAMARA 01/10/17 Albuterol Sulfate* (Albuterol Sulfate* HFA) 8.5 Gm Hfa.aer.ad, 1-2 PUFF INH Q4 Y for SHORTNESS OF BREATH, #1 EA Prov:ROBINSON LACEY 12/15/14 Primary Care Provider Olivia Dunaway MD Pending Labs Laboratory Tests Test 06/10/17 07:36 White Blood Count 13.010^3/ul (4.8-10.8) Red Blood Count 3.9010^6/ul (4.20-5.40) Hemoglobin 9.4g/dl (12.0-16.0) Hematocrit 29.5% (37.0-47.0) Mean Corpuscular Volume 75.6fl (82.0-101.0) Mean Corpuscular Hemoglobin 24.1pg (29.0-33.0) Mean Corpuscular Hemoglobin Concent 31.9g/dl (32.0-37.0) Red Cell Distribution Width 15.5% (11.5-14.5) Platelet Count 16231^3/UL (140-415) Mean Platelet Volume 9.5fl (7.4-10.4) Neutrophils % 73.6% (39.0-77.0) Lymphocytes % 19.8% (15.0-51.0) Monocytes % 5.1% (0.0-11.0) Eosinophils % 0.8% (0.0-7.0) Basophils % 0.2% (0.0-2.0) Nucleated Red Blood Cells % 0.0/100WBC (0.0-0.0) Neutrophils # 9.610^3/ul (1.6-7.5) Lymphocytes # 2.610^3/ul (0.8-2.9) Monocytes # 0.710^3/ul (0.3-0.9) Eosinophils # 0.110^3/ul (0.0-0.5) Basophils # 0.010^3/ul (0.0-0.1) Nucleated Red Blood Cells # 0.010^3/ul (0.0-0.0) VANITA SILVER M.D. Jun 10, 2017 11:27
[2017-06-10 16:10] VITALS: BP 137/77; PULSE 78; RESP 18
[2017-06-10 19:50] VITALS: BP 131/67; PULSE 134; RESP 18
[2017-06-11] MEDS: IBUPROFEN 600 MG TAB PO SCH ×3 (00:15→11:43)
[2017-06-11 03:50] VITALS: BP 129/61; PULSE 93; RESP 17
[2017-06-11 08:57] VITALS: BP 114/65; PULSE 76; RESP 18
[2017-06-11] MEDS ORDERED: DIPHTH/TET/ACEL PERTUSS (ADULT) 0.5 ML VIAL IM* ONE (09:00)
[2017-06-11] MEDS: SENNA/DOCUSATE NA (8.6MG/50MG) TAB PO SCH (09:32)
[2017-06-11] MEDS: PRENATAL VITAMIN PO SCH (09:32)
[2017-06-11] MEDS: BENZOCAINE 20% 56 ML SPRAY TOP PRN (15:03)
== END 2017-06-11 15:15 | disposition home or self-care (01) | DRG 775 ==
LOC: OBT 15:55 → L-D 15:57 → OBT 16:16 → PP1 06-09 06:23
PROVIDERS: ADMIT Obstetrics & Gynecology; ATTEND Obstetrics & Gynecology
PROC: 10E0XZZ Delivery of Products of Conception, External Approach (ICD-10-PCS; principal; 2017-06-08)
PROC: 0KQM0ZZ Repair Perineum Muscle, Open Approach (ICD-10-PCS; 2017-06-08)
PROC: 3E033VJ Introduction of Other Hormone into Peripheral Vein, Percutaneous Approach (ICD-10-PCS; 2017-06-08)
DX: O70.1 Second degree perineal laceration during delivery (principal); Z37.0 Single live birth; Z3A.38 38 weeks gestation of pregnancy
CPT/HCPCS: 62319; 76815; 85025; 85610; 85730; 86592; 86900; 86901; 90715; 99464; G0463; J2590; J3010; J7120